=== PATIENT | male | born 1975 | race Caucasian/White ===

== ENCOUNTER 2017-01-03 19:57 | Emergency (ER) | payer OTHER ==
[2017-01-03 20:05] VITALS: BP 117/53; PULSE 79; TEMP 97.3; BMI 25.0
[2017-01-03] MEDS ORDERED: DIPHTH,PERTUSS(ACELL),TET 0.5 ML DISP.SYRIN IM ONE (20:46)
[2017-01-03] MEDS ORDERED: BACITRACIN 15 GM TUBE TOPICAL OINTMENT ONE (20:50)
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
== END 2017-01-03 20:57 | disposition home or self-care (01) ==
LOC: JERFT 19:57
PROC: 3E0234Z Introduction of Serum, Toxoid and Vaccine into Muscle, Percutaneous Approach (ICD-10-PCS; principal; 2017-01-03)
DX: S51.812A Laceration without foreign body of left forearm, initial encounter (principal); W27.8XXA Contact with other nonpowered hand tool, initial encounter; Y93.89 Activity, other specified; Y92.038 Other place in apartment as the place of occurrence of the external cause; Y99.8 Other external cause status
CPT/HCPCS: 90715; 99281-25

== ENCOUNTER 2022-06-26 11:49 | Day surgery (SDC) | payer OTHER ==
[2022-06-25 09:03] VITALS: BMI 25.8
[2022-06-26] MEDS ORDERED: MIDAZOLAM HCL 2 MG/2 ML SINGLE DOSE VIAL ONE (13:18)
[2022-06-26] MEDS ORDERED: SUCCINYLCHOLINE CHLORIDE 200 MG/10 ML SYRINGE ONE (13:18)
[2022-06-26] MEDS ORDERED: PROPOFOL 20 ML ONE ×2 (13:18→13:41)
[2022-06-26] MEDS ORDERED: ePHEDrine SULFATE 50 MG/1 ML AMPULE ONE (13:47)
[2022-06-26] MEDS ORDERED: oxyCODONE HCL 5 MG TABLET PO PRN (15:03)
[2022-06-26] MEDS ORDERED: ONDANSETRON 4 MG/2 ML VIAL IVPUSH PRN (15:03)
[2022-06-26] MEDS ORDERED: PROMETHAZINE HCL 25 MG/1 ML VIAL IVPUSH PRN (15:03)
[2022-06-26] MEDS ORDERED: LACTATED RINGERS SOLUTION 1,000 ML IV SCH (15:15)
[2022-06-26] MEDS ORDERED: oxyCODONE HCL 5 MG TABLET ONE (15:27)
[2022-06-26] MEDS ORDERED: oxyCODONE HCL 5 MG TABLET PO ONE (15:31)
[2022-06-26 15:35] VITALS: TEMP 97.8
[2022-06-26 15:46] VITALS: RESP 16
[2022-06-26 16:28] VITALS: BP 120/84; PULSE 76
== END 2022-06-26 16:30 | disposition home or self-care (01) ==
LOC: FASU 11:49
PROVIDERS: ATTEND Orthopaedic Surgery Hand Surgery
PROC: 0MQ80ZZ Repair Left Hand Bursa and Ligament, Open Approach (ICD-10-PCS; principal; 2022-06-26 13:51)
DX: S53.32XA Traumatic rupture of left ulnar collateral ligament, initial encounter (principal); X58.XXXA Exposure to other specified factors, initial encounter; Y93.9 Activity, unspecified; Y92.9 Unspecified place or not applicable
CPT/HCPCS: 26540; C1713; 94760